=== PATIENT | male | born 1975 | race African-American/Black ===

== ENCOUNTER 2022-11-24 12:35 | Emergency (ER) | payer OTHER ==
[2022-11-24 12:41] VITALS: BP 114/74; PULSE 102; RESP 20; TEMP 98.5; BMI 27.1
[2022-11-24] MEDS ORDERED: TETRACAINE 0.5% OPHTH SOLN 2 ML BOTTLE OD ONE (13:25)
[2022-11-24] MEDS ORDERED: FLUORESCEIN NA 1 EA STRIP OD ONE (13:43)
[2022-11-24] MEDS ORDERED: TETRACAINE 0.5% OPHTH SOLN 2 ML BOTTLE ONE (13:52)
[2022-11-24] MEDS ORDERED: FLUORESCEIN NA 1 EA STRIP ONE (13:52)
== END 2022-11-24 15:08 | disposition home or self-care (01) ==
LOC: JERFT 12:35
DX: S05.01XA Injury of conjunctiva and corneal abrasion without foreign body, right eye, initial encounter (principal); W45.8XXA Other foreign body or object entering through skin, initial encounter
CPT/HCPCS: 99283-25

== ENCOUNTER 2023-01-07 02:34 | Emergency (ER) | payer OTHER ==
[2023-01-07 02:44] VITALS: BP 112/81; PULSE 83; RESP 18; TEMP 97.5; BMI 26.7
[2023-01-07] MEDS ORDERED: predniSONE 20 MG TABLET (UD) PO ONE (03:35)
[2023-01-07] MEDS ORDERED: predniSONE 20 MG TABLET (UD) ONE (03:43)
[2023-01-07] MEDS ORDERED: valACYclovir HCL 1000 MG TABLET PO ONE (03:56)
[2023-01-07] MEDS ORDERED: valACYclovir HCL 500 MG TABLET (FP) ONE (05:03)
== END 2023-01-07 05:11 | disposition home or self-care (01) ==
LOC: JER 02:34
DX: G51.0 Bell's palsy (principal); B37.0 Candidal stomatitis; B37.81 Candidal esophagitis
CPT/HCPCS: 82962; 99283-25

== ENCOUNTER 2024-04-25 23:54 | Emergency (ER) | payer OTHER ==
[2024-04-25 23:59] VITALS: BMI 30.1
[2024-04-26 01:08] LABS: BASO % 1.1 % (0-2.0); EOS % 1.9 % (0-4.5); HEMATOCRIT 41.4 % (35.4-49); HEMOGLOBIN 13.9 GM/dL (11.7-16.9); LYMPH % 40.3 % (8-40); MCH 30.9 pg (25.7-33.7); MCHC 33.6 g/dl (32.0-35.9); MEAN PLT VOLUME 7.3 fl (7.5-11.1); MONO % 15.9 % (3.8-10.2); NEUT % 40.8 % (42.8-82.8); PLATELET COUNT 251 10^3/uL (134-434); RDW 13.4 % (11.9-15.9); WHITE BLOOD COUNT 5.8 K/mm3 (4.0-10.0)
[2024-04-26 01:28] LABS: POTASSIUM 4.3 mmol/L (3.5-5.1)
[2024-04-26 01:30] LABS: ALBUMIN 3.5 g/dl (3.4-5.0); CALCIUM 9.2 mg/dL (8.5-10.1)
[2024-04-26 01:34] LABS: CREATININE 1.8 mg/dL (0.55-1.3)
[2024-04-26 01:35] LABS: BILIRUBIN,TOTAL 0.9 mg/dL (0.2-1); TOT PROT 7.2 g/dl (6.4-8.2)
[2024-04-26] MEDS ORDERED: ACETAMINOPHEN INJECTION 100 ML IVPB ONE (02:04)
[2024-04-26] MEDS: ACETAMINOPHEN 1000 MG/100 ML BAG IVPB ONE ×2 (02:06→02:07)
[2024-04-26 02:29] LABS: PH,URINE 6.5 (5.0-8.0); URINE APPEARANCE CLEAR; URINE BILIRUBIN NEGATIVE (NEGATIVE); URINE COLOR YELLOW; URINE GLUCOSE (UA) NEGATIVE (NEGATIVE); URINE KETONE NEGATIVE (NEGATIVE); URINE LEUK ESTERASE NEGATIVE (NEGATIVE); URINE NITRITE NEGATIVE (NEGATIVE); URINE PROTEIN NEGATIVE (NEGATIVE); URINE UROBILINOGEN 0.2 mg/dL (0.2-1.0)
[2024-04-26 04:04] VITALS: BP 112/80; PULSE 80; RESP 16; TEMP 98.1
== END 2024-04-26 04:06 | disposition home or self-care (01) ==
LOC: JER 23:54
PROC: 3E033NZ Introduction of Analgesics, Hypnotics, Sedatives into Peripheral Vein, Percutaneous Approach (ICD-10-PCS; principal; 2024-04-26)
DX: R07.89 Other chest pain (principal); R20.0 Anesthesia of skin; R10.9 Unspecified abdominal pain; N18.9 Chronic kidney disease, unspecified
CPT/HCPCS: 36415; 71045-TC-FY; 80053; 81003; 84484; 85025; 87086; 93005; 93010; 99285-25; J0131